=== PATIENT | male | born 1980 | race Caucasian/White ===

== ENCOUNTER 2017-02-23 19:00 | Emergency (ER) | payer SELFPAY ==
[~2017-02-23] VITALS: Ht 172.7 cm; Wt 70.3 kg
[2017-02-23 19:40] LABS: Basophils # (auto) 0 uL; Basophils % (auto) 0.6 % (0.0-2.0); Eosinophils # (auto) 0.2 uL; Eosinophils % (auto) 2.9 % (0.0-7.0); Hematocrit 47.1 % (41.0-53.0); Hemoglobin 15.7 g/dL (13.5-17.5); Lymphocytes # (auto) 1.5 uL; Lymphocytes % (auto) 20.7 % (10.0-50.0); Mean Corpuscular Hemoglobin 29.8 pg (28.0-32.0); Mean Corpuscular Hgb Conc. 33.5 g/dL (32.0-36.0); Mean Corpuscular Volume 88.9 fL (80.0-100.0); Monocytes # (auto) 0.7 uL; Monocytes % (auto) 8.8 % (0.0-12.0); Nucleated Red Blood Cells % 0.1 %; Platelet Count (auto) 252 10^3/uL (140-450); Red Blood Cells 5.29 10^6/uL (4.5-5.90); Red Cell Distribution Width 12.8 % (11.8-14.3); White Blood Cell 7.4 10^3/uL (4.4-10.8)
[2017-02-23 19:49] LABS: Urine Bacteria FEW /hpf (None Seen); Urine Blood Negative /uL (Negative); Urine Specific Gravity 1.022 (1.001-1.035); Urine WBC 20 /hpf (0 - 3)
[2017-02-23 20:08] LABS: Alcohol, Urine < 3.0 mg/dL (0-5); Amphetamine Screen, Urine NEGATIVE (NEGATIVE); Barbiturate Scree,Urine NEGATIVE (NEGATIVE); Benzodiazephine Screen, Urine NEGATIVE (NEGATIVE); Cannabinoid Screen, Urine NEGATIVE (NEGATIVE); Cocaine Screen, Urine NEGATIVE (NEGATIVE); Opiate Scree,Urine NEGATIVE (NEGATIVE); Phencyclidine Screen, Urine NEGATIVE (NEGATIVE)
[2017-02-23 20:12] LABS: Albumin 4.3 g/dL (3.4-5.0); BUN/Creatinine Ratio 11.8; Bilirubin, Total 0.4 mg/dL (0.2-1.0); Calcium 8.7 mg/dL (8.5-10.1); Potassium 3.7 mmol/L (3.5-5.1); Total Protein 8.5 g/dL (6.4-8.2)
[2017-02-24 07:30] VITALS: BP 121/79
== END 2017-02-24 08:08 | disposition home or self-care (01) ==
LOC: ER 19:00
DX: N20.1 Calculus of ureter (principal)
CPT/HCPCS: 36415; 74176; 80053; 80307; 81001; 82150; 83690; 85025